=== PATIENT | female | born 1955 | race Caucasian/White ===

== ENCOUNTER 2016-12-24 18:48 | Emergency (ER) | payer MEDICARE | END 2016-12-24 20:01 | disposition home or self-care (01) | LOC: ER1 18:48 | DX: M79.662 Pain in left lower leg (principal); I10 Essential (primary) hypertension; E78.5 Hyperlipidemia, unspecified; Z88.5 Allergy status to narcotic agent; Z98.890 Other specified postprocedural states; Y93.9 Activity, unspecified; E78.2 Mixed hyperlipidemia; M51.36 Other intervertebral disc degeneration, lumbar region; R06.02 Shortness of breath; E55.9 Vitamin D deficiency, unspecified; E53.8 Deficiency of other specified B group vitamins | CPT/HCPCS: 36415; 80053; 80061; 82607; 83704; 85027; 85379; 99283 ==

== ENCOUNTER → 2016-12-25 | Outpatient (CLI) | payer MEDICARE | LOC: US 11:19 | DX: M79.605 Pain in left leg (principal) | CPT/HCPCS: 93971 ==

== ENCOUNTER → 2020-11-26 | Outpatient (CLI) | payer MEDICARE ==
[~2020-11-26] MED LIST: ASPIRIN EC81 MG PO; FLONASE 0.05% N16 GM; LOPRESSOR50 MG PO; PROTONIX40 MG PO; ZOCOR10 MG PO
[2020-11-26 13:11] LABS: BUN/CREATININE RATIO 19 (0-10)
[2020-11-28 13:14] LABS: CHOLESTEROL, TOTAL 211 mg/dL (100-199); HDL SIZE 8.9 nm (>=9.2); HDL-C 63 mg/dL (>39); HDL-P (TOTAL) 42.4 umol/L (>=30.5); LARGE HDL-P 7.6 umol/L (>=4.8); LDL SIZE 20.6 nm (>20.5); LDL SIZE 20.6 nm (>=20.8); LDL-C 125 mg/dL (0-99); LDL-P 1540 nmol/L (<1000); LP-IR SCORE 42 (<=45); SMALL LDL-P 638 nmol/L (<=527); TRIGLYCERIDES 132 mg/dL (0-149); VLDL SIZE 43.4 nm (<=46.6)
== END ==
LOC: LAB 11:19
PROVIDERS: Emergency Medicine
DX: E53.9 Vitamin B deficiency, unspecified (principal); E55.9 Vitamin D deficiency, unspecified; E78.2 Mixed hyperlipidemia; I10 Essential (primary) hypertension; J30.89 Other allergic rhinitis; K21.9 Gastro-esophageal reflux disease without esophagitis; M15.8 Other polyosteoarthritis; M51.36 Other intervertebral disc degeneration, lumbar region; F17.210 Nicotine dependence, cigarettes, uncomplicated
CPT/HCPCS: 36415; 80053; 80061; 83704

== ENCOUNTER → 2021-02-11 | Outpatient (CLI) | payer MEDICARE | LOC: MAMO 10:13 → EXRD 10:30 → MAMO 10:30 → EXRD 11:30 | DX: Z12.31 Encounter for screening mammogram for malignant neoplasm of breast (principal); M15.8 Other polyosteoarthritis; M81.0 Age-related osteoporosis without current pathological fracture | CPT/HCPCS: 77063; 77067; 77080 ==

== ENCOUNTER → 2021-06-30 | Outpatient (CLI) | payer MEDICARE | LOC: ECHO 11:00 | DX: I10 Essential (primary) hypertension (principal); K21.9 Gastro-esophageal reflux disease without esophagitis; I08.1 Rheumatic disorders of both mitral and tricuspid valves; E78.2 Mixed hyperlipidemia; Z84.89 Family history of other specified conditions; Z84.81 Family history of carrier of genetic disease | CPT/HCPCS: ECHO; 93306 ==

== ENCOUNTER → 2021-07-11 | Outpatient (CLI) | payer MEDICARE ==
[2021-07-11 13:58] LABS: HEMOGLOBIN 14.6 gm/dl (12.3-15.3); RED BLOOD COUNT 4.57 M/UL (4.00-5.10); WHITE BLOOD COUNT 7.4 K/UL (4.5-11.0)
[2021-07-11 14:24] LABS: BUN/CREATININE RATIO 18 (0-10)
[2021-07-12 08:12] LABS: SARS COV-2 IGG AB Positive (Negative)
[2021-07-12 16:13] LABS: SARS COV-2 IGM AB Negative (Negative)
[2021-07-13 16:09] LABS: CHOLESTEROL, TOTAL 196 mg/dL (100-199); HDL SIZE 8.9 nm (>=9.2); HDL-C 59 mg/dL (>39); HDL-P (TOTAL) 37.5 umol/L (>=30.5); LARGE HDL-P 5.9 umol/L (>=4.8); LARGE VLDL-P 2.6 nmol/L (<=2.7); LDL SIZE 20.8 nm (>20.5); LDL SIZE 20.8 nm (>=20.8); LDL-C 119 mg/dL (0-99); LDL-P 1431 nmol/L (<1000); LP-IR SCORE 47 (<=45); SMALL LDL-P 454 nmol/L (<=527); TRIGLYCERIDES 102 mg/dL (0-149); VLDL SIZE 42.2 nm (<=46.6)
[2021-07-13 19:10] LABS: SARS COV-2 IGA AB Negative (Negative)
== END ==
LOC: LAB 12:30
PROVIDERS: Emergency Medicine
DX: I10 Essential (primary) hypertension (principal); E78.2 Mixed hyperlipidemia; K21.9 Gastro-esophageal reflux disease without esophagitis; Z84.81 Family history of carrier of genetic disease; Z84.89 Family history of other specified conditions
CPT/HCPCS: 80053; 80061; 83704; 84550; 85025; 86769